=== PATIENT | female | born 1950 | race Caucasian/White ===

== ENCOUNTER → 2018-10-27 | Outpatient (CLI) | payer OTHER, BC ==
[~2018-10-27] VITALS: Ht 162.6 cm; Wt 82.3 kg
[~2018-10-27] MED LIST: BIOTIN1 MG PO; CALCIUM CITRAT250 MG PO; CBD OIL; COQ-10100 MG PO; CRANBERRY300 MG PO; HYDROCODON-ACE1 EAC7 PO; IBUPROFEN 200200 M1 PO; INDAPAMIDE2.5 MG PO; KLOR-CON 1010 MEQ PO; MAGOX 400400 MG PO; MULTIVITAMINS1 EAC7 PO; PROBIOTIC1 EAC1 PO; VITAMIN B COMP1 EACH PO; VITAMIN D1000 UNI1 PO; ZYRTEC10 M5 PO
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
[2018-10-27 11:02] VITALS: BP 137/69
--- NOTE | 2018-10-27 11:42 | NUR ---
Pain Clinic Assessment: 1. History of Osteoarthritis: Not Applicable History of Rheumatoid Arthritis: Not Applicable 2. Height: 5 ft. 4 in. 162.6 cm. Weight: 181.4 lb. oz. 82.283 kg. Patient's BMI: 31.1 3. Vital Signs: BP: 137/69 Pulse: 72 Resp: 18 Temp: 02 Sat: 100 ECG Mon: 4. Pain Intensity: 7 5. Fall Risk: Dizziness: N Needs help standing or walking: Y Fallen in the last 3 months: N Fall risk comments: 6. Patient on Blood Thinner: None 7. History of Hypertension: N 8. Opioid Therapy greater than 6 weeks: N Opiate Contract Signed: 9. Risk Assessment Tool Provided: 10. Functional Assessment Tool: 11. Recreational Drug Use: Never Drug Type: Tobacco Use: Never Smoker Tobacco Type: Amount or Packs/day: How Many Years: Alcohol Use: No Frequency: Quant:
== END ==
LOC: PAIN 06:55
DX: M47.26 Other spondylosis with radiculopathy, lumbar region (principal); M48.061 Spinal stenosis, lumbar region without neurogenic claudication; Z79.899 Other long term (current) drug therapy

== ENCOUNTER → 2018-11-17 | Outpatient (CLI) | payer OTHER, BC ==
[~2018-11-17] VITALS: Ht 162.6 cm; Wt 81.6 kg
--- NOTE | ~2018-11-17 | HPC ---
[facility] [place] [address] PAIN MANAGEMENT CONSULTATION Name: MEGAN NORTON Room #: REG [facility].#: [id number] Admission: 11/17/18 Attend Phys: Oniel Arriaga MD Discharge: Date of : 46 Report #: [id number] THIS REPORT FOR: //name// CC: MAXIMILIANO Medrano MD Physician staff Oniel Arriaga DATE OF SERVICE: 11/17/2018 Followup visit for lumbar radiculopathy. The patient is here today in followup. She had a nice response to her initial epidural injection performed on 10/17/2018. Pain reduction was noted after a few days and she has had some sustained improvement. She is now having recurrence of pain that radiates down into both buttocks. It is worse in the left. She would like to repeat the injection today. We are hopeful that we can get longer duration of action and a more sustained response with a followup injection today. We talked about the importance of exercise and remaining active with physical therapy. All medications have been reviewed and reconciled and are unchanged. She takes hydrocodone as needed for severe breakthrough pain and I have agreed to provide her with an additional 60 tablets. She has an upcoming trip planned to visit family in the [facility]. She seems to be doing better after the loss of her last year. PHYSICAL EXAMINATION: VITAL SIGNS: Blood pressure 139/94, heart rate 63, respirations 18. BMI is 30.9. GENERAL: She moves from sitting to standing position, walks with mild antalgic gait. She has pain across her low back, bilateral straight leg raising, worse on the left. IMPRESSION: 1. Chronic low back pain secondary to severe spinal stenosis at L3-L4. Moderate spinal stenosis above and below. 2. Lumbar radiculopathy. 3. Management of high risk medications at low dose. We discussed the importance of safeguarding medication. I have initiated an opioid agreement. I have reviewed her medication use on the prescription drug monitoring program and other than the prescribing of promethazine with codeine earlier in the year, there are no unexpected entries. [facility] [address] [place] [address] PAIN MANAGEMENT CONSULTATION Name: MEGAN NORTON Room #: REG [facility] Dior#: [id number] Admission: 11/17/18 Attend Phys: Oniel Arriaga MD Discharge: Date of : 46 Report #: [id number] RECOMMENDATIONS: I will continue to provide medication for her in conjunction with her primary care physician and we will let him continue to keep in touch by records. She needs medication for her trip and I provided her with 60 tablets. PROCEDURE: Lumbar epidural injection under fluoroscopic guidance. DESCRIPTION OF PROCEDURE: She was taken to fluoroscopic suite, placed prone, skin prepped with ChloraPrep. Skin anesthetized over the L3-L4 interspace. A 20-gauge Tuohy epidural needle advanced in the epidural space using loss of resistance technique. There was no blood nor CSF aspirated. A 1 mL of Omnipaque injected with good spread of dye observed into the epidural space, was followed by 3 mL of 0.5% lidocaine mixed with 80 mg of triamcinolone. She tolerated the procedure well and was observed for 45 minutes and discharged. Follow up as needed. I do not intend to do another injection unless necessary. Due to her severe stenosis, there is a possibility she may need a decompressive procedure at some point in time based upon pain symptoms or weakness. We will continue to monitor carefully. By: [id number] Oniel Arriaga MD /nt
[2018-11-17 14:18] VITALS: BP 139/94
--- NOTE | 2018-11-17 14:25 | NUR ---
Pain Clinic Assessment: 1. History of Osteoarthritis: Not Applicable History of Rheumatoid Arthritis: Not Applicable 2. Height: 5 ft. 4 in. 162.6 cm. Weight: 180.0 lb. oz. 81.648 kg. Patient's BMI: 30.9 3. Vital Signs: BP: 139/94 Pulse: 63 Resp: 18 Temp: 02 Sat: 99 ECG Mon: 4. Pain Intensity: 6 5. Fall Risk: Dizziness: N Needs help standing or walking: N Fallen in the last 3 months: N Fall risk comments: 6. Patient on Blood Thinner: None 7. History of Hypertension: N 8. Opioid Therapy greater than 6 weeks: N Opiate Contract Signed: 9. Risk Assessment Tool Provided: low-0 10. Functional Assessment Tool: 53/70 11. Recreational Drug Use: Never Drug Type: Tobacco Use: Never Smoker Tobacco Type: Amount or Packs/day: How Many Years: Alcohol Use: No Frequency: Quant:
== END | disposition home or self-care (01) ==
LOC: PAIN 06:53
DX: M48.061 Spinal stenosis, lumbar region without neurogenic claudication (principal); M54.16 Radiculopathy, lumbar region; G89.29 Other chronic pain; Z79.891 Long term (current) use of opiate analgesic; Z98.890 Other specified postprocedural states; Z88.0 Allergy status to penicillin; Z79.899 Other long term (current) drug therapy

== ENCOUNTER → 2019-03-06 | Outpatient (CLI) | payer OTHER, BC ==
[~2019-03-06] VITALS: Ht 162.6 cm; Wt 83.6 kg
[2019-03-06 10:59] VITALS: BP 149/77
--- NOTE | 2019-03-06 11:16 | NUR ---
Pain Clinic Assessment: 1. History of Osteoarthritis: HANDS NECK SPINE History of Rheumatoid Arthritis: DENIES 2. Height: 5 ft. 4 in. 162.6 cm. Weight: 184.4 lb. oz. 83.643 kg. Patient's BMI: 31.6 3. Vital Signs: BP: 149/77 Pulse: 63 Resp: 16 Temp: 02 Sat: 100 ECG Mon: 4. Pain Intensity: 6 5. Fall Risk: Dizziness: N Needs help standing or walking: Y Fallen in the last 3 months: N Fall risk comments: 6. Patient on Blood Thinner: None 7. History of Hypertension: N 8. Opioid Therapy greater than 6 weeks: N Opiate Contract Signed: 9. Risk Assessment Tool Provided: low-0 10. Functional Assessment Tool: 43 11. Recreational Drug Use: Never Drug Type: Tobacco Use: Never Smoker Tobacco Type: Amount or Packs/day: How Many Years: Alcohol Use: No Frequency: Quant:
--- NOTE | 2019-03-06 11:28 | NUR ---
Pain Clinic Assessment: 1. History of Osteoarthritis: HANDS NECK SPINE History of Rheumatoid Arthritis: DENIES 2. Height: 5 ft. 4 in. 162.6 cm. Weight: 184.4 lb. oz. 83.643 kg. Patient's BMI: 31.6 3. Vital Signs: BP: 149/77 Pulse: 63 Resp: 16 Temp: 02 Sat: 100 ECG Mon: 4. Pain Intensity: 6 5. Fall Risk: Dizziness: N Needs help standing or walking: Y Fallen in the last 3 months: N Fall risk comments: 6. Patient on Blood Thinner: None 7. History of Hypertension: N 8. Opioid Therapy greater than 6 weeks: N Opiate Contract Signed: 9. Risk Assessment Tool Provided: low-1 10. Functional Assessment Tool: 43 11. Recreational Drug Use: Never Drug Type: Tobacco Use: Never Smoker Tobacco Type: Amount or Packs/day: How Many Years: Alcohol Use: No Frequency: Quant:
== END | disposition home or self-care (01) ==
LOC: PAIN 06:56
DX: M48.061 Spinal stenosis, lumbar region without neurogenic claudication (principal); M54.5 Low back pain; I10 Essential (primary) hypertension; K29.70 Gastritis, unspecified, without bleeding; Z98.890 Other specified postprocedural states; Z79.899 Other long term (current) drug therapy; Z88.0 Allergy status to penicillin

== ENCOUNTER → 2019-09-21 | Outpatient (CLI) | payer OTHER, BC ==
[~2019-09-21] VITALS: Ht 162.6 cm; Wt 77.7 kg
[~2019-09-21] MED LIST changes: +ASA81BEC PO; +ISOSORBIDE MONO30 M1 PO
[2019-09-21 13:50] VITALS: BP 127/62
--- NOTE | 2019-09-21 14:04 | NUR ---
Pain Clinic Assessment: 1. History of Osteoarthritis: HANDS NECK SPINE History of Rheumatoid Arthritis: DENIES 2. Height: 5 ft. 4 in. 162.6 cm. Weight: 171.2 lb. oz. 77.656 kg. Patient's BMI: 29.4 3. Vital Signs: BP: 127/62 Pulse: 58 Resp: 16 Temp: 02 Sat: 98 ECG Mon: 4. Pain Intensity: 8 5. Fall Risk: Dizziness: N Needs help standing or walking: Y Fallen in the last 3 months: N Fall risk comments: 6. Patient on Blood Thinner: None 7. History of Hypertension: N 8. Opioid Therapy greater than 6 weeks: N Opiate Contract Signed: 9. Risk Assessment Tool Provided: low-1 10. Functional Assessment Tool: 43 11. Recreational Drug Use: Never Drug Type: Tobacco Use: Never Smoker Tobacco Type: Amount or Packs/day: How Many Years: Alcohol Use: No Frequency: Quant:
--- NOTE | 2019-09-29 15:51 | HPC ---
[facility] [place] [address] PAIN MANAGEMENT CONSULTATION Name: MEGAN NORTON Room #: REG [facility].#: [id number] Admission: 09/21/19 Attend Phys: Oniel Arriaga MD Discharge: Date of : 46 Report #: [id number] THIS REPORT FOR: cc: MAXIMILIANO CASANOVA Physician not on staff Oniel Arriaga MD ~ CC: MAXIMILIANO CASANOVA Physician staff Oniel Arriaga DATE OF SERVICE: 09/21/2019 Followup visit for severe spinal stenosis, multilevel. The patient returns to the pain clinic today with her daughter. She has severe spinal stenosis and rotation in the mid lumbar spine. She has been receiving epidural injections and has had some decent relief, but the duration of response measured in months. I reviewed her MRI with her today and also with her daughter. We discussed an epidural as a stop gap measure that will help her control pain and she needs to discuss further with Dr. Griffin a possible decompression. Because of her multilevel stenosis, it is possible she may require more extensive surgery that might even include fusion. Dr. Griffin has told her that it might take up to 10 months for her to recover. She is a bit weaker and concerned about falling, she is using a walker. PQRS: Positive for arthritis of the cervical spine with spondylosis. She also complains of arthritis of her hands. Her BMI is up a bit at 29.4 with COVID home quarantining. Her blood pressure is 127/62, heart rate 58, respirations 16, O2 sat 98. Pain intensity is 8/10. She needs a bit of help standing and walking with the walker, but has not fallen recently. She is on no blood thinners and no history of hypertension, but she did recently have a myocardial infarction, she was hospitalized for 4 days in July and stents were placed. She is on no opioids from our clinic. Risks assessment tool is 1. Functional assessment score 43/70. Denies tobacco and alcohol. IMPRESSION: 1. Low back pain with radiculopathy secondary to spinal stenosis. 2. Coronary artery disease, status post coronary artery injury. She was told that her condition is SCAD. PROCEDURE: Lumbar epidural injection L3-L4 under fluoroscopic guidance. DESCRIPTION OF PROCEDURE: After informed consent, she was taken to fluoroscopic [address] [address] PAIN MANAGEMENT CONSULTATION Name: MEGAN NORTON Room #: REG [facility].#: [id number] Admission: 09/21/19 Attend Phys: Oniel Arriaga MD Discharge: Date of : 46 Report #: [id number] suite, placed prone, skin prepped with ChloraPrep. Skin anesthetized over the L3-L4 interspace. A 20-gauge Tuohy epidural needle was advanced, first attempt, in the epidural space with loss of resistance. There was no blood nor CSF aspirated. A 1 mL of Omnipaque injected. Good spread of dye was observed into the epidural space. This was then followed by 3 mL of 0.5% lidocaine mixed with 80 mg triamcinolone. She tolerated the procedure well and was observed for 45 minutes and discharged. Follow up as needed. <ELECTRONICALLY SIGNED> By: Oniel Arriaga MD 09/29/19 [id number] Oniel Arriaga MD /nt
== END | disposition home or self-care (01) ==
LOC: PAIN 08:18
PROVIDERS: ATTEND Anesthesiology Pain Medicine
DX: M48.061 Spinal stenosis, lumbar region without neurogenic claudication (principal); M54.16 Radiculopathy, lumbar region; I25.10 Atherosclerotic heart disease of native coronary artery without angina pectoris; I25.2 Old myocardial infarction; Z98.890 Other specified postprocedural states; Z79.899 Other long term (current) drug therapy; Z88.0 Allergy status to penicillin

== ENCOUNTER → 2019-10-23 | Outpatient (CLI) | payer OTHER, BC ==
[~2019-10-23] VITALS: Ht 162.6 cm; Wt 75.0 kg
--- NOTE | ~2019-10-23 | HPC ---
[facility] [address] [place] [address] PAIN MANAGEMENT CONSULTATION Name: MEGAN NORTON Room #: REG [facility].#: [id number] Admission: 10/23/19 Attend Phys: Oniel Arriaga MD Discharge: Date of : 46 Report #: [id number] THIS REPORT FOR: cc: MAXIMILIANO CASANOVA Physician not on staff Oniel Arriaga MD ~ CC: MAXIMILIANO CASANOVA Physician staff Oniel Arriaga DATE OF SERVICE: 10/23/2019 Followup visit for chronic low back pain with radiculopathy secondary to multilevel spinal stenosis. The patient returns to pain clinic today with partial relief after her first epidural injection. Pain is still, however, severe when standing and she scores it as a 10 and uses a walker. She would like another epidural injection to see if we can build upon her first injection. I am going to inject at the same level. I am also going to provide her with a small prescription for hydrocodone, which we discussed and she has surgery as a fall back option. I discussed this at some length at last visit. PQRS is unchanged from 09/21/2019. Please review that note just 30 days ago. PHYSICAL EXAMINATION: GENERAL: She is still walking with a walker, pleasant, alert and oriented. VITAL SIGNS: Blood pressure of 142/59, heart rate 56, respirations 16. NECK: Supple. CHEST: Clear. CARDIAC: Rhythm is regular. MUSCULOSKELETAL: Spine is tender across the lumbosacral segment. She has pain that radiates into the left leg primarily. IMPRESSION: Severe multilevel spinal stenosis with lumbar radiculopathy. RECOMMENDATIONS: L3-L4 epidural injection under fluoroscopic guidance. PROCEDURE: After informed consent, she was taken to fluoroscopic suite, placed prone, skin prepped with ChloraPrep. Skin anesthetized over L3-L4. Using biplanar fluoroscopic views, I advanced needle into the epidural space with loss of resistance. There was no blood nor CSF aspirated. A 1 mL of Omnipaque was injected with excellent spread of dye observed within the epidural space, was followed by 3 mL of 0.5% lidocaine mixed with 80 mg of triamcinolone. She tolerated the procedure well. There were no complications. She was discharged and a followup visit planned in 1-[address] [address] PAIN MANAGEMENT CONSULTATION Name: MEGAN NORTON Room #: REG [facility].#: [id number] Admission: 10/23/19 Attend Phys: Oniel Arriaga MD Discharge: Date of : 46 Report #: [id number] Prescriptions were sent electronically. By: [id number] Oniel Arriaga MD /nt
[2019-10-23 12:51] VITALS: BP 142/59
--- NOTE | 2019-10-23 13:04 | NUR ---
Pain Clinic Assessment: 1. History of Osteoarthritis: HANDS NECK SPINE History of Rheumatoid Arthritis: DENIES 2. Height: 5 ft. 4 in. 162.6 cm. Weight: 165.4 lb. oz. 75.025 kg. Patient's BMI: 28.4 3. Vital Signs: BP: 142/59 Pulse: 56 Resp: 16 Temp: 02 Sat: 100 ECG Mon: 4. Pain Intensity: 10 when walking 5. Fall Risk: Dizziness: N Needs help standing or walking: Y Fallen in the last 3 months: N Fall risk comments: 6. Patient on Blood Thinner: None 7. History of Hypertension: N 8. Opioid Therapy greater than 6 weeks: N Opiate Contract Signed: 9. Risk Assessment Tool Provided: low-1 10. Functional Assessment Tool: 55/70 11. Recreational Drug Use: Never Drug Type: Tobacco Use: Never Smoker Tobacco Type: Amount or Packs/day: How Many Years: Alcohol Use: No Frequency: Quant:
== END | disposition home or self-care (01) ==
LOC: PAIN 07:10
PROVIDERS: ATTEND Anesthesiology Pain Medicine
DX: M48.061 Spinal stenosis, lumbar region without neurogenic claudication (principal); M54.16 Radiculopathy, lumbar region; G89.29 Other chronic pain; Z98.890 Other specified postprocedural states; Z79.899 Other long term (current) drug therapy; Z88.0 Allergy status to penicillin

== ENCOUNTER → 2020-01-15 | Outpatient (CLI) | payer OTHER, BC ==
[~2020-01-15] VITALS: Ht 162.6 cm; Wt 73.0 kg
[~2020-01-15] MED LIST changes: +AMITRIPTYLINE H10 M3 PO
--- NOTE | ~2020-01-15 | HPC ---
[facility] [place] [address] PAIN MANAGEMENT CONSULTATION Name: MEGAN NORTON Room #: REG [facility].#: [id number] Admission: 01/15/20 Attend Phys: Oniel Arriaga MD Discharge: Date of : 46 Report #: [id number] CC: MAXIMILIANO CASANOVA Physician staff Oniel Arriaga Followup visit for low back pain with radiculopathy. The patient returns to the pain clinic today and is really in significant amount of pain. She scores her pain as a 7, but that is after medication. When she takes medication, her pain is substantially better. She is reluctant to take hydrocodone, but we discussed taking it carefully and cautiously for severe pain. Her last prescription was filled on 09/12 for 46 tablets. They would not fill the full prescription. We have discussed taking it as needed. It is really affecting her day-to-day activities and level of function. Her functional assessment score is 54/70 suggesting dramatic impacts of her daily pain. She has a PQRS that describes multiple joint arthritis, hands, neck and spine. Her BMI 27.6, blood pressure 155/76, heart rate 60, respirations 14, O2 sat 99. Pain intensity once again today is 7/10. She is in need of help standing and walking and walks with antalgic features. She is on no blood thinners and can have an injection today. She is also treated for hypertension. Risk assessment score for opioids is 1 suggesting low risk for addiction. She is careful about her medicines and we have reviewed an opioid agreement. I have agreed to provide those medicines for her going forward as long as we can carefully monitor them. Dr. Griffin ordered an MRI of her cervical spine. I have asked him to see her due to her severe spinal stenosis. Her most recent x-rays of the lumbar spine show progression with very severe spinal stenosis with interval worsening at L3-4. The radiologist measured the anterior-posterior at only 3-4 mm due to disk bulging and ligamentum flavum thickening and congenital narrowing. 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 IMPRESSION: Severe lumbar radiculopathy with spinal stenosis. PROCEDURE: Epidural injection L3-L4 under fluoroscopic guidance. DESCRIPTION OF PROCEDURE: After informed consent, she was taken to fluoroscopic suite, placed prone, skin prepped with ChloraPrep. Skin anesthetized over the L3-L4 interspace. A 20-gauge Tuohy epidural needle advanced in the epidural space with loss of resistance. No blood or CSF aspirated. A 1 mL of Omnipaque injected. Good spread of dye observed in the epidural space followed by 3 mL of 0.5% lidocaine mixed with 80 mg triamcinolone. She tolerated the procedure well and was observed for 45 minutes and discharged. Followup visit planned as needed. She may seek out a second opinion regarding surgery for her back. She is 69. I think it unlikely that she will be able to get by with that degree of stenosis indefinitely and perhaps it may be best to seek a surgical option now rather than later. By: [id number] Oniel Arriaga MD /nt
--- NOTE | ~2020-01-15 | HPC ---
[facility] [place] [address] PAIN MANAGEMENT CONSULTATION Name: MEGAN NORTON Room #: REG [facility]..#: [id number] Admission: 01/15/20 Attend Phys: Oniel Arriaga MD Discharge: Date of : 46 Report #: [id number] CC: MAXIMILIANO CASANOVA Physician staff Oniel Arriaga DATE OF SERVICE: 01/15/2020 ADDENDUM I also prescribed for the patient amitriptyline 10 mg p.o. at bedtime. She may increase that to 2 tablets at bedtime. She will take this for 1 month and has asked to see if it helps with sleep and assist with neuropathic pain. She often wakes in the middle of the night with severe pain and hopefully this will provide both the sedating effect and also benefit for her neuropathic pain. This should have been opioid limiting affect. By: [id number] Oniel Arriaga MD /nt
[2020-01-15 10:16] VITALS: BP 155/76
--- NOTE | 2020-01-15 10:42 | NUR ---
Pain Clinic Assessment: 1. History of Osteoarthritis: HANDS NECK SPINE History of Rheumatoid Arthritis: DENIES 2. Height: 5 ft. 4 in. 162.6 cm. Weight: 161.0 lb. oz. 73.029 kg. Patient's BMI: 27.6 3. Vital Signs: BP: 155/76 Pulse: 60 Resp: 14 Temp: 02 Sat: 99 ECG Mon: 4. Pain Intensity: 7; 9 PRIOR TO MEDS 5. Fall Risk: Dizziness: N Needs help standing or walking: Y Fallen in the last 3 months: N Fall risk comments: 6. Patient on Blood Thinner: None 7. History of Hypertension: N 8. Opioid Therapy greater than 6 weeks: N Opiate Contract Signed: 9. Risk Assessment Tool Provided: low-1 10. Functional Assessment Tool: 54/70 11. Recreational Drug Use: Never Drug Type: Tobacco Use: Never Smoker Tobacco Type: Amount or Packs/day: How Many Years: Alcohol Use: No Frequency: Quant:
== END | disposition home or self-care (01) ==
LOC: PAIN 06:50
PROVIDERS: ATTEND Anesthesiology Pain Medicine
DX: M54.16 Radiculopathy, lumbar region (principal); M48.061 Spinal stenosis, lumbar region without neurogenic claudication; G89.29 Other chronic pain; I10 Essential (primary) hypertension; M19.90 Unspecified osteoarthritis, unspecified site; Z98.890 Other specified postprocedural states; Z79.899 Other long term (current) drug therapy; Z79.82 Long term (current) use of aspirin; Z88.0 Allergy status to penicillin

== ENCOUNTER → 2020-06-25 | Outpatient (CLI) | payer OTHER, BC | LOC: SJCVC 13:01 | PROVIDERS: ATTEND Nuclear Medicine Nuclear Cardiology | DX: I87.2 Venous insufficiency (chronic) (peripheral) (principal); M79.89 Other specified soft tissue disorders; I10 Essential (primary) hypertension; I25.42 Coronary artery dissection; Z88.0 Allergy status to penicillin; Z79.82 Long term (current) use of aspirin; Z79.899 Other long term (current) drug therapy ==

== ENCOUNTER → 2020-07-11 | Outpatient (CLI) | payer OTHER, BC ==
[~2020-07-11] VITALS: Ht 165.1 cm; Wt 74.4 kg
[~2020-07-11] MED LIST changes: +STOOL SOFTENER1 EAC2 PO; +VITAMIN B125000 MCG PO
[2020-07-11 13:23] VITALS: BP 126/74
--- NOTE | 2020-07-11 13:35 | NUR ---
Pain Clinic Assessment: 1. History of Osteoarthritis: HANDS NECK SPINE History of Rheumatoid Arthritis: DENIES 2. Height: 5 ft. 5 in. 165.1 cm. Weight: 164.0 lb. oz. 74.390 kg. Patient's BMI: 27.3 3. Vital Signs: BP: 126/74 Pulse: 78 Resp: 16 Temp: 02 Sat: 96 ECG Mon: 4. Pain Intensity: 5 5. Fall Risk: Dizziness: N Needs help standing or walking: N Fallen in the last 3 months: N Fall risk comments: 6. Patient on Blood Thinner: None 7. History of Hypertension: N 8. Opioid Therapy greater than 6 weeks: N Opiate Contract Signed: 9. Risk Assessment Tool Provided: low-1 10. Functional Assessment Tool: 11. Recreational Drug Use: Never Drug Type: Tobacco Use: Never Smoker Tobacco Type: Amount or Packs/day: How Many Years: Alcohol Use: No Frequency: Quant:
== END | disposition home or self-care (01) ==
LOC: PAIN 07-04 11:03
PROVIDERS: ATTEND Anesthesiology Pain Medicine
DX: M47.26 Other spondylosis with radiculopathy, lumbar region (principal); M48.061 Spinal stenosis, lumbar region without neurogenic claudication; G89.29 Other chronic pain; M19.90 Unspecified osteoarthritis, unspecified site; Z98.890 Other specified postprocedural states; Z79.899 Other long term (current) drug therapy; Z88.0 Allergy status to penicillin

== ENCOUNTER → 2021-02-13 | Outpatient (CLI) | payer OTHER, BC ==
[~2021-02-13] VITALS: Ht 165.1 cm; Wt 69.9 kg
[~2021-02-13] MED LIST changes: +ACID CONTROLLER20 MG PO; +LANOXIN125 MCG PO
[2021-02-13 11:12] VITALS: BP 172/78
--- NOTE | 2021-02-13 11:18 | NUR ---
Pain Clinic Assessment: 1. History of Osteoarthritis: HANDS NECK SPINE History of Rheumatoid Arthritis: DENIES 2. Height: 5 ft. 5 in. 165.1 cm. Weight: 154.0 lb. oz. 69.854 kg. Patient's BMI: 25.6 3. Vital Signs: BP: 172/78 Pulse: 67 Resp: 16 Temp: 02 Sat: 99 ECG Mon: 4. Pain Intensity: 7 5. Fall Risk: Dizziness: N Needs help standing or walking: N Fallen in the last 3 months: N Fall risk comments: 6. Patient on Blood Thinner: None 7. History of Hypertension: N 8. Opioid Therapy greater than 6 weeks: N Opiate Contract Signed: 9. Risk Assessment Tool Provided: low-1 10. Functional Assessment Tool: 11. Recreational Drug Use: Never Drug Type: Tobacco Use: Never Smoker Tobacco Type: Amount or Packs/day: How Many Years: Alcohol Use: No Frequency: Quant:
== END ==
LOC: PAIN 10:00
PROVIDERS: ATTEND Clinical Nurse Specialist Adult Health
DX: G89.29 Other chronic pain (principal); M48.061 Spinal stenosis, lumbar region without neurogenic claudication; M47.26 Other spondylosis with radiculopathy, lumbar region; M75.102 Unspecified rotator cuff tear or rupture of left shoulder, not specified as traumatic; Z88.0 Allergy status to penicillin; Z79.899 Other long term (current) drug therapy